=== PATIENT | female | born 1955 | race Caucasian/White ===

== ENCOUNTER 2017-05-12 13:14 | Day surgery (SDC) | payer OTHER ==
[~2017-05-12] VITALS: Ht 160 cm; Wt 71.4 kg
[2017-05-12 14:11] VITALS: Ht 160 cm; Wt 71.4 kg
[2017-05-12] MEDS ORDERED: OMEPRAZOLE (14:17)
[2017-05-12] MEDS ORDERED: ATORVASTATIN (14:17)
[2017-05-12] MEDS ORDERED: OMEGA (14:17)
[2017-05-12] MEDS ORDERED: ALENDRONATE (14:17)
[2017-05-12 14:41] VITALS: BP 148/69; PULSE 66; RESP 10
--- NOTE | 2017-05-12 15:25 | OPPN ---
Date/Time of Note Date/Time of Note DATE: 05/12/17 TIME: 15:19 Operative Report Preoperative Diagnosis screening colonoscopy Postoperative Diagnosis small 2 polyps removed Operation/Procedure Performed colonoscopy 3mm polyp in transverse colon removed, 2mm polyp in sigmoid colon removed with bx. Surgeon see signature line purchasing assistant none Anesthesia: moderate sedation (versed 3mg/fetanyl 75 mcg/demoral 25 mg/total time moderate sedation 16 mts) Estimated blood loss: none Transfusion Required none Specimen 2 polyps 3mm polyp at tr/colon/2mm polyp at sigmoid colon Grafts/Implants none Complications none YOUSIF ARNOLD MD May 12, 2017 15:25
[2017-05-12] MEDS ORDERED: FENTAnyl 50 MCG/ML VIAL ONE (15:42)
[2017-05-12] MEDS ORDERED: MIDAZOLAM 1 MG/ML 2 ML INJ ONE ×2 (15:42)
[2017-05-12] MEDS ORDERED: MEPERIDINE 50 MG INJ ONE (15:42)
[2017-05-12 15:50] VITALS: BP 122/64; RESP 14
--- NOTE | 2017-05-12 18:55 | GILP ---
DATE OF PROCEDURE: 05/12/2017 PREOPERATIVE DIAGNOSIS: Screening colonoscopy. PROCEDURE DONE: Colonoscopy, removal of 2 small polyps with biopsy forceps, 1 in the transverse col on, about 3 mm polyp. In the sigmoid colon, the polyp was 2 mm polyp and diverticulosis also noted in the left colon. DESCRIPTION OF PROCEDURE: The patient was put in left lateral decubitus after obtaining informed co nsent. The patient was sedated, monitored on oximetry, EKG, blood pressure and advanced an Olympus video colonoscope after sedating the patient. The patient received 3 mg IV Versed and 75 mcg of fen tanyl and 25 mg of Demerol. Very carefully, I advanced the colonoscope all the way to cecum, ascending colon, transverse colon u nremarkable except in the distal transverse colon, a 3 mm polyp was noted. This was removed by biop sy forceps completely. Left colon showed multiple diverticula. In the sigmoid colon, another 2 mm polyp was noted. This w as biopsied and removed completely. In the rectum including retroflexion was normal. Upon removal of scope, the patient had no complication. Plan will be to await for biopsy report, follow up as ou tpatient. Repeat colonoscopy in this case 5 years. Dictated By: YOUSIF DANIEL Conf#: [id number] DID#: [id number] CC: YOUNG NELSON MD;*End*
== END 2017-05-12 16:08 | disposition home or self-care (01) ==
LOC: GIL 13:14
PROVIDERS: ATTEND Internal Medicine
DX: Z12.11 Encounter for screening for malignant neoplasm of colon (principal); E11.9 Type 2 diabetes mellitus without complications; I10 Essential (primary) hypertension; E78.5 Hyperlipidemia, unspecified; K63.5 Polyp of colon; K57.30 Diverticulosis of large intestine without perforation or abscess without bleeding
CPT/HCPCS: 45380; 88305; J2175; J2250; J3010; Z7610